=== PATIENT | male | born 1955 | race Caucasian/White ===

== ENCOUNTER → 2019-01-08 | Day surgery (SDC) | payer OTHER ==
[~2019-01-08] MED LIST: ACETAMINOPHEN 325 MG TAB PO ONE; ASPIRIN EC 325 MG TAB PO ONE; ATROPINE SULFATE 1 MG/10 ML SYR IVP PRN; DIAZEPAM 5 MG TAB PO ONE; FAMOTIDINE 20 MG TAB PO ONE; FAMOTIDINE 20 MG/NACL 50 ML IV ONE; HEPARIN 10,000 UNIT/10 ML MDV (1,000 UNIT/ML) ONE; IOPAMIDOL (ISOVUE-370) 150 ML BTL IV ONE; LIDOCAINE 1% 300 MG/30 ML SDV ONE; MIDAZOLAM 2 MG/2 ML VIAL ONE; NITROGLYCERIN 0.4 MG BTL SL PRN; NS 1,000 ML IV ONE; ONDANSETRON 4 MG/2 ML VIAL IVP PRN; VERAPAMIL 5 MG/2 ML VIAL ONE; diphenhydrAMINE 25 MG CAP PO ONE; fentaNYL 100 MCG/2 ML INJ ONE; methylPREDNISolone SOD SUCC 125 MG/2 ML VIAL IVP ONE
[2019-01-08 09:27] LABS: PLATELET COUNT 240 10^3/uL (150-400)
[2019-01-08 09:36] LABS: INR 1.01 (0.83-1.16); PROTIME(PATIENT) 12.9 SEC (12.0-15.0)
--- NOTE | 2019-01-08 10:20 | PDPROPOC ---
Sedation Plan of Care Sedation Plan of Care: vital signs stable, mental status noted, patient educated of risks, benefits, alternatives, patient can tolerate sedation ASA Classification: ASA 2 Planned drugs: fentanyl, midazolam Mallampati Score: Class 1 Mallampati Reference Image: Patient passed 3-3-2 rule?: Yes
--- NOTE | 2019-01-08 10:21 | PDHPUP ---
History & Physical Update H&P update statement: This history and physical update is based on an assessment of the patient which was completed after admission or registration (within 24 hours), but prior to the surgery/procedure. H&P update: H&P reviewed & patient examined, no change in patient's condition since H&P completed
--- NOTE | 2019-01-08 11:23 | CPEKG ---
Test Reason : OPEN Blood Pressure : / mmHG Vent. Rate : 064 BPM Atrial Rate : 064 BPM P-R Int : 158 ms QRS Dur : 095 ms QT Int : 403 ms P-R-T Axes : 009 -62 -26 degrees QTc Int : 416 ms Sinus rhythm Confirmed by Geoff Rogers ([id number]) on 01/08/2019 11:23:14 AM Referred By: Pedro Kent Confirmed By:Geoff Rogers
--- NOTE | 2019-01-08 11:46 | PDDXCAT ---
Diagnostic Cath Note - . Date: 01/08/19 Reading Specialist: Yoli Indication: CCC Class III and IV angina on medical treatment - Procedure Access: right groin Procedure: left heart catheterization, coronary angiography, left ventriculogram - Materials Left Heart Cath size: 6F (The procedure was complicated by very tortuous right common iliac artery necessitating placement of a long braided sheath over an Amplatzer stiff wire.) Left Heart Cath materials: standard multipack (JL4, JR4, pigtail) - Findings-Left Heart Catheterization LM: This is a large caliber vessel. There appears to be trifurcation into the left anterior descending circumflex and ramus intermedius vessels. The ramus intermedius is a small diffusely disease vessel that appears to be occluded. LAD: This large caliber transapical vessel. During his course toward the apex gives rise to a single principal diagonal branch. There are diffuse luminal irregularities without obstructive lesions. LCX: The circumflex is a moderate caliber vessel. There are 2 obtuse marginal branches and a small posterolateral branch. The 2nd obtuse marginal appears to be chronically occluded proximally with ipsilateral collateralization to a small caliber distal vessel. RCA: The right coronary artery is moderate caliber in the proximal segment. It is occluded proximally. There are extensive contralateral collaterals noted via the circumflex and septal arcade. LVEF: 35-40%. Dense diaphragmatic akinesis. Wall motion: Diaphragmatic akinesis. Complications: None. Estimated blood loss: <50ml Closure method: manual pressure Assessment: 1. Coronary artery disease as described above with an occluded collateralized right coronary artery and a chronically occluded 2nd obtuse marginal branch. Additionally, there is likely a chronically occluded small caliber ramus intermedius branch. 2. Reduced left ventricular systolic function with ejection fraction of 35-40%. Wall motion abnormalities including akinesis of the diaphragmatic segment. 3. [place] [employer] class 3 angina. Plan: This was discussed with interventional cardiology. It was felt that the patient would be best suited for medical management. Intervention: None.
== END | disposition home or self-care (01) ==
LOC: FCATH 08:45
PROVIDERS: ATTEND Internal Medicine Cardiovascular Disease
PROC: B2111ZZ Fluoroscopy of Multiple Coronary Arteries using Low Osmolar Contrast (ICD-10-PCS; principal; 2019-01-08)
PROC: 4A023N7 Measurement of Cardiac Sampling and Pressure, Left Heart, Percutaneous Approach (ICD-10-PCS; principal; 2019-01-08)
PROC: B2151ZZ Fluoroscopy of Left Heart using Low Osmolar Contrast (ICD-10-PCS; principal; 2019-01-08)
DX: I25.110 Atherosclerotic heart disease of native coronary artery with unstable angina pectoris (principal); F17.210 Nicotine dependence, cigarettes, uncomplicated
CPT/HCPCS: C1769; J1200; J1644; J2250; J2930; J3010; Q9967